=== PATIENT | female | born 1950 | race Caucasian/White ===

== ENCOUNTER 2023-04-20 15:59 | Emergency (ER) | payer MEDICARE, MEDICAID ==
[2023-04-20 17:27] LABS: Bilirubin Moderate (Negative); Blood, Urine Small (Negative); Clarity Clear (Clear); Glucose, Urine (Dipstick) Negative (Negative); Ketone, Urine Trace mg/dL (Negative); Leukocyte Negative (Negative); Nitrite Negative (Negative); Protein, Urine (Dipstick) 30 mg/dL (Neg-Trace); pH, Urine 5.5 (5.0-9.0)
[2023-04-20 17:35] LABS: Specific Gravity, Urine 1.029 (1.002-1.036)
[2023-04-20 17:39] LABS: Bacteria/HPF Rare-Few HPF (None Seen); CAUTI Indications for Culture Pelvic or flank pain; Mucous/LPF 2+ LPF (<2+); Urine Culture Reflex No No; WBC/HPF None Seen HPF (0-3)
[2023-04-20] MEDS ORDERED: Ondansetron ODT 4 MG TAB ONE (18:01)
[2023-04-20] MEDS ORDERED: Sulfameth/Trimethoprim DS 800-160mg TAB ONE (18:01)
== END 2023-04-20 18:04 | disposition home or self-care (01) ==
LOC: MADERS 15:59
DX: N39.0 Urinary tract infection, site not specified (principal); R11.2 Nausea with vomiting, unspecified; J11.1 Influenza due to unidentified influenza virus with other respiratory manifestations
CPT/HCPCS: 81001; 99284; Q0162